=== PATIENT | female | born 1955 | race Caucasian/White ===

== ENCOUNTER → 2017-01-22 | Outpatient (CLI) | payer OTHER ==
[~2017-01-22] MED LIST: HYDR-3454 PO; METH4TAB PO; SULF-222 PO; SULF1TAB35 PO
--- NOTE | 2017-01-22 19:17 | Diagnostic Imaging Report ---
EXAMINATION: DEXA scan. INDICATION: Osteopenia. TECHNIQUE: Bone mineral density estimated based on dual energy radiography over the lumbar spine and femoral necks, was performed. FINDINGS: The lumbar spine T-score is 1.8. T-score over the left femoral neck is 0.3 and the right is 0.7. IMPRESSION: Bone mineral density within normal limits. Dictated by: Dictated on workstation # [id number]
--- NOTE | 2017-01-22 19:44 | Diagnostic Imaging Report ---
Diagnostic mammogram. INDICATION: 6 MOS F/U RT ASYMMETRY N64.89 R 92.2 Comparison 07/10/16. The current study was also evaluated with a Computer Aided Detection (CAD) system. FINDINGS: The breasts are composed of heterogeneously dense parenchyma which may decrease mammographic sensitivity. The previously seen asymmetry along the far posteromedial aspect of the right breast is less prominent on the current exam with persistent dense background parenchyma. It is likely related to summation artifact of parenchyma. IMPRESSION: Less prominent asymmetry with background dense parenchymal tissue in favor of summation artifact. No adverse development. Reevaluation when the patient is due for her bilateral screening mammogram in June 2017 is recommended. ACR BI-RADS Category 3: Probably benign findings. Result letter will be mailed to the patient. Note: At least 10% of breast cancer is not imaged by mammography. Dictated by: Dictated on workstation # [id number]
== END ==
LOC: RAD 07:27
PROVIDERS: ATTEND Obstetrics & Gynecology
DX: N64.89 Other specified disorders of breast (principal); R92.2 Inconclusive mammogram
CPT/HCPCS: 77080

== ENCOUNTER → 2017-07-09 | Outpatient (CLI) | payer OTHER ==
--- NOTE | 2017-07-09 21:42 | Diagnostic Imaging Report ---
Bilateral diagnostic mammogram. The current study was also evaluated with a Computer Aided Detection (CAD) system. INDICATION: Asymmetry in the posterior medial aspect of the right breast followup, first seen on exam from 07/01/2016. FINDINGS: There breasts are composed of heterogeneously dense parenchyma which may decrease mammographic sensitivity. The previously seen asymmetry along the medial posterior aspect of the right breast appears less prominent compared to the prior exams and is likely related to summation effect of parenchyma with no adverse development seen. No correlating abnormality is noted along the tomographic views evaluation. Scattered benign-appearing calcification seen. IMPRESSION: Less prominent asymmetry along the medial aspect of the right breast is suggestive of summation artifact of parenchyma. Annual screening mammograms recommended. ACR BI-RADS Category 2: Benign findings. Result letter will be mailed to the patient. Note: At least 10% of breast cancer is not imaged by mammography. Dictated by: Dictated on workstation # [id number]
== END ==
LOC: RAD 07:58
PROVIDERS: ATTEND Obstetrics & Gynecology
DX: N64.89 Other specified disorders of breast (principal)
CPT/HCPCS: 77066

== ENCOUNTER → 2019-02-01 | Outpatient (CLI) | payer OTHER ==
[~2019-02-01] MED LIST changes: -HYDR-3454 PO; +HYDR-3455 PO
--- NOTE | 2019-02-01 13:26 | Diagnostic Imaging Report ---
INDICATION: Right hip pain TECHNIQUE: 2 views of the right hip. CORRELATION STUDY: None FINDINGS: Images of the hip demonstrate no evidence for acute fracture. Alignment is anatomic. The femoral head acetabular relationship is unremarkable. The bony trabecular pattern is intact. Lucency of the right iliac bone likely reflects bowel gas. IMPRESSION: 1. Negative for acute bony abnormality of the right hip. Dictated by: Dictated on workstation # [id number]
== END ==
LOC: RAD 11:31
PROVIDERS: ATTEND Internal Medicine
DX: Z00.00 Encounter for general adult medical examination without abnormal findings (principal); M70.71 Other bursitis of hip, right hip; M99.04 Segmental and somatic dysfunction of sacral region; M99.03 Segmental and somatic dysfunction of lumbar region
CPT/HCPCS: 73502

== ENCOUNTER → 2019-02-09 | Outpatient (CLI) | payer OTHER ==
--- NOTE | 2019-02-09 11:10 | Diagnostic Imaging Report ---
INDICATION: Routine screening. COMPARISON: 07/09/2017 and 07/01/2016. TECHNIQUE: 2D and 3D bilateral screening mammography was performed with CAD. FINDINGS: Both breasts are heterogeneously dense, limiting the sensitivity of mammography. There are benign calcifications on the left. No mass or malignant appearing microcalcifications are seen. The axillae are unremarkable. IMPRESSION: No mammographic features suspicious for malignancy are identified. ACR BI-RADS Category 2: Benign findings. Result letter will be mailed to the patient. Note: At least 10% of breast cancer is not imaged by mammography. Dictated by: Dictated on workstation # [id number]
== END ==
LOC: RAD 07:56
PROVIDERS: ATTEND Obstetrics & Gynecology
DX: Z12.31 Encounter for screening mammogram for malignant neoplasm of breast (principal)
CPT/HCPCS: 77067